=== PATIENT | female | born 1945 | race American Indian/Alaskan Native ===

== ENCOUNTER 2017-10-22 08:34 | Outpatient (CLI) | payer MEDICARE ==
--- NOTE | 2017-10-23 09:50 | Nuclear Medicine Report ---
NUCLEAR MEDICINE THYROID UPTAKE MULTIPLE History: Left thyroid nodule. Findings: No studies for comparison. There is normal and homogeneous radiotracer uptake throughout the thyroid gland. No definitive hot or cold nodule is identified. 4 hour uptake measures 9.0%. Normal range 4-18%. 24 hour uptake measures 25.3%. Normal range measures 18-36%. Impression: Normal exam.
== END 2017-10-22 08:35 | disposition home or self-care (01) ==
LOC: NM 08:34
PROVIDERS: ATTEND Internal Medicine
DX: E04.1 Nontoxic single thyroid nodule (principal)
CPT/HCPCS: 78012; A9516